=== PATIENT | male | born 1970 | race Caucasian/White ===

== ENCOUNTER 2023-06-25 11:01 | Emergency (ER) | payer OTHER ==
[~2023-06-25] VITALS: Ht 172.7 cm; Wt 64.4 kg
[2023-06-25 11:27] VITALS: TEMP 98
[2023-06-25] MEDS ORDERED: IBUP-1554 PO (13:25)
[2023-06-25] MEDS ORDERED: ACET-2080 PO (13:25)
[2023-06-25] MEDS ORDERED: ACETAMINOPHEN/CODEINE 300-30 MG TABLET PO ONE (13:30)
[2023-06-25 13:59] VITALS: BP 128/65; PULSE 74; RESP 18
== END 2023-06-25 14:06 | disposition home or self-care (01) ==
LOC: EMS 11:10
DX: S83.91XA Sprain of unspecified site of right knee, initial encounter (principal); Z98.890 Other specified postprocedural states; X58.XXXA Exposure to other specified factors, initial encounter; Y93.66 Activity, soccer; Y92.89 Other specified places as the place of occurrence of the external cause; Y99.8 Other external cause status
CPT/HCPCS: 99283